=== PATIENT | male | born 1985 | race Caucasian/White ===

== ENCOUNTER 2016-05-06 14:12 | Inpatient (IN) | payer BC, OTHER ==
[~2016-05-06] VITALS: Ht 172.7 cm; Wt 86.2 kg
[2016-05-06] MEDS ORDERED: ONDANSETRON ODT 4 MG TAB.RAPDIS SL PRN (18:00)
[2016-05-06] MEDS ORDERED: LORAZEPAM 2 MG/1 ML VIAL IM PRN (18:00)
[2016-05-06] MEDS ORDERED: BACLOFEN 20 MG TABLET PO PRN (18:00)
[2016-05-06] MEDS ORDERED: MAG HYDROX/AL HYDROX/SIMETH 30 ML LIQUID UDC PO PRN (18:00)
[2016-05-06] MEDS ORDERED: MAGNESIUM HYDROXIDE 30 ML LIQUID UDC PO PRN (18:00)
[2016-05-06] MEDS ORDERED: DIAZEPAM 10 MG TABLET PO PRN ×2 (18:00)
[2016-05-06] MEDS ORDERED: ACETAMINOPHEN 325 MG TABLET PO PRN (18:00)
[2016-05-06] MEDS ORDERED: BUPRENORPHINE HCL 2 MG TAB.SUBL SL PRN (18:00)
[2016-05-06] MEDS ORDERED: PROMETHAZINE HCL 25 MG/1 ML VIAL IM PRN (18:00)
[2016-05-06] MEDS ORDERED: DIAZEPAM 5 MG TABLET PO PRN (18:00)
[2016-05-06] MEDS ORDERED: KETOROLAC TROMETHAMINE 30 MG INJ IM PRN (18:00)
[2016-05-06] MEDS ORDERED: DICYCLOMINE HCL 20 MG TABLET PO PRN (18:00)
[2016-05-06] MEDS ORDERED: IBUPROFEN 600 MG TABLET PO PRN (18:00)
[2016-05-06] MEDS ORDERED: diphenhydrAMINE 50 MG CAPSULE PO PRN (18:00)
[2016-05-06] MEDS ORDERED: LOPERAMIDE HCL 2 MG CAPSULE PO PRN ×2 (18:00)
[2016-05-06 18:10] VITALS: BP 117/75
[2016-05-06 18:31] LABS: *AMPHETAMINE, URINE NEGATIVE (NEGATIVE); *BARBITURATE, URINE NEGATIVE (NEGATIVE); *CANNABINOID, URINE NEGATIVE (NEGATIVE); *COCCAINE, URINE NEGATIVE (NEGATIVE); *OPIATE, URINE POSITIVE (NEGATIVE)
[2016-05-06 18:50] LABS: *PHENCYCLIDINE SCREEN,URINE NEGATIVE (NEGATIVE)
[2016-05-06 20:00] VITALS: BP 131/61
[2016-05-06] MEDS ORDERED: LIDO30CR TP (20:11)
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
[2016-05-06] MEDS: GABAPENTIN 300 MG CAPSULE PO SCH (20:33)
[2016-05-06 20:40] LABS: BASOPHILS % (AUTO) 0.5 % (0.0-2.0); EOSINOPHILS # (AUTO) 0.3 K/uL (0.0-0.7); EOSINOPHILS % (AUTO) 3.7 % (0.0-7.0); HEMATOCRIT 43.8 % (40.0-50.0); HEMOGLOBIN 14.9 g/dL (14.0-18.0); LYMPHOCYTES # (AUTO) 2.5 K/uL (0.8-4.8); LYMPHOCYTES % (AUTO) 32.9 % (20.5-51.5); MEAN CORPUSCULAR HEMOGLOBIN 29.7 uug (27.0-31.0); MEAN CORPUSCULAR HGB CONC 34 g/dL (32.0-37.0); MEAN CORPUSCULAR VOLUME 87.5 fL (82.0-92.0); MONOCYTES # (AUTO) 0.5 K/uL (0.1-1.30); MONOCYTES % (AUTO) 6.2 % (0.0-11.0); NEUTROPHILS # (AUTO) 4.2 K/uL (1.8-8.9); NEUTROPHILS % (AUTO) 56.7 % (38.5-71.5); PLATELET COUNT (AUTO) 171 K/uL (150-450); RED BLOOD CELL COUNT(AUTO) 5.01 MIL/uL (4.70-6.10); RED CELL DISTRIBUTION WIDTH 12.2 % (11.5-14.5); WHITE BLOOD COUNT (AUTO) 7.5 K/uL (4.0-11.2)
[2016-05-06] MEDS ORDERED: DIAZEPAM 10 MG TABLET PO SCH (21:00)
[2016-05-06] MEDS ORDERED: BUPRENORPHINE HCL 2 MG TAB.SUBL SL SCH (21:00)
[2016-05-06 21:01] LABS: ALANINE AMINOTRANSFERASE 30 U/L (16-63); ALBUMIN 3.8 g/dL (3.4-5.0); ALKALINE PHOSPHATASE 64 U/L (50-136); ASPARTATE AMINOTRANSFERASE 16 U/L (15-37); BILIRUBIN,TOTAL 0.2 mg/dL (0.2-1.0); CALCIUM 8.9 mg/dL (8.5-10.1); CARBON DIOXIDE 30 mmol/L (21-32); CHLORIDE 105 mmol/L (98-107); CREATININE 1.1 mg/dL (0.6-1.3); GFR 80 mL/min (>60); GLUCOSE 134 mg/dL (74-106); POTASSIUM 3.7 mmol/L (3.5-5.1); SODIUM SERUM 143 mmol/L (136-145); TOTAL PROTEIN, SERUM 6.7 g/dL (6.4-8.2); UREA NITROGEN, BLOOD 11 mg/dL (7-18)
[2016-05-06 21:02] LABS: ETHANOL < 3 MG/DL (0-0)
[2016-05-06 21:06] LABS: THYROID STIMULATING HORMONE 0.767 mIU/mL (0.358-3.740)
[2016-05-06 21:09] LABS: HIV-1 p24 ANTIGEN NON REACTIVE (NONREACTIVE); HIV-1/2 ANTIBODY NON REACTIVE (NONREACTIVE)
[2016-05-06] MEDS: HYDROXYZINE PAMOATE 25 MG CAPSULE PO PRN (22:55)
--- NOTE | 2016-05-06 22:55 | NUR ---
BENADRYL AND VISTARIL PRN ADMINISTRATION Pt stated " I'm feeling a little anxious and I can't sleep. Can I have something?" Benadryl 50 mg PO PRN and Vistaril 50 mg PO PRN was given. Pt was encouraged to notify staff of any changes in condition or of any concerns. Pt verbalized an understanding. All safety measures in place. Will monitor for effectiveness.
--- NOTE | 2016-05-06 23:50 | NUR ---
BENADRYL AND VISTARIL PRN REASSESSMENT Pt is asleep in bed with no signs of distress/discomfort noted. PRNs effective. All safety measures in place. Will continue to monitor.
[2016-05-07] VITALS: BP 108/63
[2016-05-07] MEDS: CLONIDINE HCL 0.1 MG TABLET PO PRN ×2 (03:05→13:21)
--- NOTE | 2016-05-07 03:08 | NUR ---
CLONIDINE PRN ADMINISTRATION Pt stated " I woke up sweating, and I'm fidgety. Can I have something?" Clonidine 0.1 mg PO PRN was given. (BP: 112/61 HR: 72). Pt was encouraged to notify staff of any changes in condition or of any further concerns. Pt verbalized an understanding. All safety measures in place. Will monitor for effectiveness.
--- NOTE | 2016-05-07 04:00 | NUR ---
CLONIDINE PRN REASSESSMENT Pt is asleep in bed with no signs of distress/discomfort noted. PRN effective. All safety measures in place. Will continue to monitor.
--- NOTE | 2016-05-07 04:00 | NUR ---
COW, CIWA, AND VITALS REFUSED Pt refused to be assessed and have vitals taken at this time. Pt was encouraged x 3 with risks and benefits explained but the pt still declined. All safety measures in place. Will continue to monitor. Addendum: 05/07/16 at 0648 by CHARLY UP LVN Amended: Links added.
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
--- NOTE | 2016-05-07 07:40 | NUR ---
START OF SHIFT Pt is a 30 yr old male, AA&Ox3. Pt was admitted on 05/06/16 for Opiate/Benzo Dependence and is on 5 day Valium/ Subutex taper as ordered. Medication eusebia well. Pt is full code, regular diet and allergies to dairy products. Pt reports PMH of Bipolar, Depression, Anxiety, Chronic Back pain, and Hx of seizures. Pt is currently in bed resting with respirations even and unlabored. No acute distress noted. Skin is intact, warm and dry to touch. No tremor seen or felt. Pt denies any n/v. Safety precautions observed. Bed kept in low position and locked with side rail up x2. Call light is within reach. Will continue to monitor.
[2016-05-07 08:00] VITALS: BP 124/63
[2016-05-07] MEDS: LIDOCAINE 5% PATCH TD SCH (08:57)
[2016-05-07] MEDS: DIAZEPAM 10 MG TABLET PO SCH ×3 (08:58→20:25)
[2016-05-07] MEDS: BUPRENORPHINE HCL 2 MG TAB.SUBL SL SCH ×3 (08:59→20:25)
[2016-05-07] MEDS: GABAPENTIN 300 MG CAPSULE PO SCH ×2 (08:59→14:10)
[2016-05-07] MEDS: MULTIVITAMINS,THERAPEUTIC TABLET PO SCH (08:59)
[2016-05-07] MEDS ORDERED: TUBERCULIN,PURIF.PROT.DERIV. 5 TU/0.1 ML TEST ID ONE (09:00)
[2016-05-07 12:00] VITALS: BP 121/68
--- NOTE | 2016-05-07 13:21 | NUR ---
PRN'S GIVEN Pt c/o hot/cold chills. Facial redness is observed. Pt is noted with teary eyes. Pt is c/o muscle aching and anxiety. Clonidine 0.1mg PO PRN and Motrin 600mg PO PRN was given as ordered. Medication eusebia well. Encouraged increase fluid intake. Will continue to monitor.
[2016-05-07] MEDS: BACLOFEN 20 MG TABLET PO SCH ×2 (14:10→20:23)
--- NOTE | 2016-05-07 14:21 | NUR ---
PRN RE-ASSESSMENT Clonidine 0.1mg PRN and Motrin 600mg PO PRN was mildly effective. Pt received Subutex 4mg SL and Valium 10mg PO as scheduled was given. Medication was eusebia well and effective. Encouraged increase fluid intake. Will continue to monitor.
[2016-05-07 16:00] VITALS: BP 130/61
[2016-05-07] MEDS: MIRALAX 17 GM POWD.PACK PO PRN (18:37)
--- NOTE | 2016-05-07 19:17 | NUR ---
END OF SHIFT Pt is a 30 yr old male, AA&Ox3. Pt was admitted on 05/06/16 for Opiate/Benzo Dependence and is on 5 day Valium/ Subutex taper as ordered. Medication eusebia well. Pt is full code, regular diet and allergies to dairy products. Pt reports PMH of Bipolar, Depression, Anxiety, Chronic Back pain, and Hx of seizures. Pt has been cooperative with plan of care and medication regime. Pt received Clonidine and Motrin PRN was given at 1321 for s/s of w/d. Medication was mildly effective. Pt c/o not having a BM in 3 days. Miralax 17gm PRN was given as ordered at 1837. Endorsed to structural metal fabricator apprentice nurse to continue to monitor. encouraged increase fluid intake. Skin is intact, warm and dry to touch. No tremor seen or felt. Pt denies any n/v at this time. Last COWS score was 8, CIWA score was 6. Safety precautions observed. Bed kept in low position and locked with side rail up x2. Call light is within reach.
[2016-05-07 20:00] VITALS: BP 134/73
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
[2016-05-07] MEDS ORDERED: GABAPENTIN 300 MG CAPSULE PO SCH (21:00)
[2016-05-07] MEDS ORDERED: LIDOCAINE 5% PATCH TD ONE (21:45)
[2016-05-07] MEDS: TRAZODONE 50 MG TABLET PO PRN (22:59)
--- NOTE | 2016-05-07 22:59 | NUR ---
PRN TRAZADONE ADMINISTRATION PATIENT REQUESTS FOR SLEEP AID. PRN TRAZADONE GIVEN. WILL MONITOR FOR EFFECTIVENESS
--- NOTE | 2016-05-08 | NUR ---
PRN TRAZADONE RE-ASSESSMENT/COWS/CIWA/VS PATIENT REQUESTED NOT TO WAKE HIM UP FOR VS. COWS/CIWA UNABLE TO COMPLETE . PATIENT IN BED WITH EYES CLOSED. RESPIRATION EVEN AND UNLABORED. RR 14. SAFETY MEASURES IN PLACE. CALL LIGHT IN REACH. WILL CONTINUE TO MONITOR
--- NOTE | 2016-05-08 04:00 | NUR ---
COWS/CIWA/VS PATIENT REQUESTED NOT TO WAKE HIM UP FOR VS. COWS/CIWA UNABLE TO COMPLETE . PATIENT IN BED WITH EYES CLOSED. RESPIRATION EVEN AND UNLABORED. RR 16. SAFETY MEASURES IN PLACE. CALL LIGHT IN REACH. WILL CONTINUE TO MONITOR
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
--- NOTE | 2016-05-08 07:05 | NUR ---
Start of Shift Notes: Received patient in his room. Alert and oriented x 4. Verbally responsive. Able to make his needs known. Respirations even and unlabored. No SOB noted. Skin warm and dry to touch. Abdomen soft and non-distended. BS (+) in all 4 quadrants. No complains of N/V/D or constipation noted. Bladder non-distended. Voids independently with no complains of dysuria. Ambulatory ad tangela with steady gait. Patient is a 30 year old male admitted for opiate and BZO dependence who was placed on a 5-day Subutex and 5-day Valium taper as ordered. No adverse reactions noted. Has past medical hx of bipolar disorder, depression, anxiety, chronic back pain, induced seizure due to BZO withdrawal. Allergic to dairy product. FULL CODE. Regular diet. On fall and seizure precautions. Educated patient on his current plan of care for the day and his medication regimen. Encouraged oral fluid intake and encouraged group participation to learn new skills to prevent relapse. Will continue to monitor closely.
[2016-05-08 08:00] VITALS: BP 112/61
[2016-05-08] MEDS: LIDOCAINE 5% PATCH TD SCH (08:08)
[2016-05-08] MEDS: MULTIVITAMINS,THERAPEUTIC TABLET PO SCH (08:08)
[2016-05-08] MEDS: DIAZEPAM 5 MG TABLET PO SCH ×4 (08:08→21:01)
[2016-05-08] MEDS: BACLOFEN 20 MG TABLET PO SCH ×3 (08:08→21:00)
[2016-05-08] MEDS: GABAPENTIN 300 MG CAPSULE PO SCH ×3 (08:08→21:01)
[2016-05-08] MEDS ORDERED: BUPRENORPHINE HCL 2 MG TAB.SUBL SL SCH (09:00)
[2016-05-08] MEDS ORDERED: LIDOCAINE/PRILOCAINE 5 GM CREAM.GM. TP PRN (11:00)
[2016-05-08 12:00] VITALS: BP 131/79
[2016-05-08] MEDS: MIRALAX 17 GM POWD.PACK PO PRN (12:53)
--- NOTE | 2016-05-08 12:53 | NUR ---
Miralax 17gm PO given: Patient noted with complain of constipation. Encouraged oral fluid intake and activity with no effect. Medicated patient with Miralax 17 gm PO as ordered. Will monitor for effectiveness.
[2016-05-08 13:25] LABS: HCV AB 0.1 s/co ratio (0.0-0.9); HEPATITIS B CORE AB, IgM Negative (Negative); HEPATITIS B SURFACE AG Negative (Negative)
--- NOTE | 2016-05-08 13:53 | NUR ---
Re-assessment: Per patient, no result noted from Miralax at this time. Will continue to monitor for effectiveness.
[2016-05-08] MEDS: CLONIDINE HCL 0.1 MG TABLET PO SCH ×2 (14:53→21:00)
[2016-05-08] MEDS: BUPRENORPHINE HCL 2 MG TAB.SUBL SL SCH ×2 (14:53→21:01)
[2016-05-08 16:00] VITALS: BP 121/77
--- NOTE | 2016-05-08 16:23 | NUR ---
Subutex 2 mg SL x 1 given: Orders received from MD for x 1 dose of Subutex 2 mg. Will monitor for effectiveness.
[2016-05-08] MEDS ORDERED: BUPRENORPHINE HCL 2 MG TAB.SUBL SL ONE (16:30)
[2016-05-08] MEDS ORDERED: MAGNESIUM CITRATE 296 ML BOTTLE PO ONE (16:30)
--- NOTE | 2016-05-08 16:53 | NUR ---
Re-assessment: COWS 2. PRN Subutex was effective.
--- NOTE | 2016-05-08 18:40 | NUR ---
Mag Citrate given: Patient requested for mag citrate to be given at this time due to no relief noted from Miralax. Mag Citrate was given as ordered. Will monitor for effectiveness.
[2016-05-08] MEDS: PATIENT MAY USE OWN MED- MD OK TOP PRN (18:41)
--- NOTE | 2016-05-08 19:28 | NUR ---
End of Shift Notes: Patient is a 30 year old male admitted for opiate dependence who was placed on a 5-day Valium and 5-day Subutex taper as ordered. No adverse reactions noted. Patient is on his 3rd day of his taper. Has past medical hx of bipolar disorder, depression, anxiety, chronic back pain, withdrawal induced seizure. Allergic to milk and dairy products. FULL CODE. Regualr diet. On fall and seizure precautions. Prior to admission, patient was using Oxycodone 20mg PO, Morphine 45-60 mg PO and Soma. VS monitored q 4 hours. No significant abnormalities noted in the patients VS noted. Withdrawal symptoms were closely monitored. Patient presented with anxiety, agitation, bone/joint aches, chills/hot flashes and mild sweats. Initial COWS 7/CIWA 5. Last COWS 2/CIWA 4. Per patient, PRN Subutex and Valium has been helping him with his withdrawal symptoms. Patient needs redirection and reassurance. At times, appears to be fixated on his taper meds despite education of his medication regimen. Patient demands taper meds to be increased. Reassurance was provided. Miralax 17 gm PO was given at 1253 due to complain of constipation as well as Mag Citrate. No BM noted this shift. Safety measures in place at all times. All needs met and attended. Will continue to monitor closely.
[2016-05-08 20:00] VITALS: BP 127/84
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
--- NOTE | 2016-05-08 22:00 | NUR ---
PRN MAG CITRATE RE-ASSESSMENT PATIENT STATES HE HAD BM, MAG CITRATE HELPFUL AND EFFECTIVE. CONTINUE TO ENCOURAGE FLUIDS
[2016-05-08] MEDS: TRAZODONE 50 MG TABLET PO PRN (22:58)
--- NOTE | 2016-05-08 22:58 | NUR ---
PRN TRAZADONE ADMINISTRATION PATIENT REQUESTS FOR SLEEP AID. PRN TRAZADONE GIVEN. WILL MONITOR FOR EFFECTIVENESS
--- NOTE | 2016-05-08 23:58 | NUR ---
PRN TRAZADONE RE-ASSESSMENT PATIENT IN BE WITH EYES CLOSED. RESPIRATION EVEN AND UNLABORED. NO S/S OF DISTRESS. SAFETY MEASURES IN PLACE. WILL CONTINUE TO MONITOR.
--- NOTE | 2016-05-09 | NUR ---
COWS/CIWA/VS PATIENT REFUSED VS. UNABLE TO COMPLETE COWS/CIWA ASSESSMENT. RESPIRATION EVEN AND UNLABORED. RR 14. NO S/S OF DISTRESS. SAFETY MEASURES IN PLACE. CALL LIGHT IN REACH. WILL CONTINUE TO MONITOR
--- NOTE | 2016-05-09 04:00 | NUR ---
COWS/CIWA/VS PATIENT REFUSED VS. UNABLE TO COMPLETE COWS/CIWA ASSESSMENT. RESPIRATION EVEN AND UNLABORED. RR 16. NO S/S OF DISTRESS. SAFETY MEASURES IN PLACE. CALL LIGHT IN REACH. WILL CONTINUE TO MONITOR
--- NOTE | 2016-05-09 07:10 | NUR ---
Start of shift note SBAR report rcv'd. Pt was admitted for opiate and soma dependence. Pt has a PMH of bipolar, depression, anxiety, chronic back pain, and withdrawal induced seizures. Pt is on a 5 day valium and 5 day subutex taper. Pt is a full code, has NKDA, is allergic to milk, is on a regular diet. Pt is currently resting in bed. Respirations are even and unlabored. Bed is locked in a low position, call light within reach, side rails up x 2. All needs addressed at this time. Will continue to monitor pt.
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
[2016-05-09 08:00] VITALS: BP 118/60
[2016-05-09] MEDS: GABAPENTIN 300 MG CAPSULE PO SCH ×2 (08:31→15:27)
[2016-05-09] MEDS: CLONIDINE HCL 0.1 MG TABLET PO SCH ×3 (08:31→20:50)
[2016-05-09] MEDS: DIAZEPAM 5 MG TABLET PO SCH ×3 (08:31→20:50)
[2016-05-09] MEDS: MULTIVITAMINS,THERAPEUTIC TABLET PO SCH (08:31)
[2016-05-09] MEDS: BACLOFEN 20 MG TABLET PO SCH ×3 (08:31→20:50)
[2016-05-09] MEDS: BUPRENORPHINE HCL 2 MG TAB.SUBL SL SCH ×3 (08:31→20:56)
[2016-05-09] MEDS: PATIENT MAY USE OWN MED- MD OK TOP PRN ×3 (10:47→20:59)
--- NOTE | 2016-05-09 10:47 | NUR ---
PRN administration Pt c/o back pain, administered lidocaine PRN per MD order. Addendum: 05/09/16 at 1535 by ELIU VILLAGRAN RN pt states pain level of 9/10
--- NOTE | 2016-05-09 11:17 | NUR ---
Reassessment Pt states that the lidocaine cream was effective in reducing his pain to a comfortable level.of 06/24.
[2016-05-09] MEDS ORDERED: BUPRENORPHINE HCL 2 MG TAB.SUBL SL ONE (11:30)
[2016-05-09 12:00] VITALS: BP 116/60
[2016-05-09] MEDS ORDERED: DICYCLOMINE HCL 20 MG TABLET PO SCH (15:00)
[2016-05-09] MEDS: DICYCLOMINE HCL 20 MG TABLET PO SCH ×2 (15:27→20:49)
--- NOTE | 2016-05-09 15:32 | NUR ---
PRN administration Pt states that he has pain level of 9/10. Administered lidocaine ointment per MD order. Will continue to monitor pt.
[2016-05-09 16:00] VITALS: BP 136/79
--- NOTE | 2016-05-09 18:51 | NUR ---
End of shift note Pt was admitted for opiate and soma dependence. Pt has a PMH of bipolar, depression, anxiety, chronic back pain, and withdrawal induced seizures. Pt is on a 5 day valium and 5 day subutex taper. Pt is a full code, has NKDA, is allergic to milk, is on a regular diet. Pt had one extra dose of Subutex during the shift d/t his high COWS score and withdrawal. Pt is tolerating the rest of the taper well. Pt recent COWS of 7 and CIWA of 7. Pt had two administrations of his lidocaine ointment for his back pain. Pt states that he is comfortable at this time. Will endorse SBAR to oncoming shift. All needs addressed at this time.
[2016-05-09 20:00] VITALS: BP 124/77
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
--- NOTE | 2016-05-09 20:59 | NUR ---
PRN Administration 2059 Pt reported lower back pain 07/25, requested relief. Lidocaine 5% ointment administered. Safety measures in place, call light within reach, side rails up x2, bed locked and in low position. Will continue to monitor.
[2016-05-09] MEDS ORDERED: GABAPENTIN 300 MG CAPSULE PO SCH (21:00)
--- NOTE | 2016-05-09 21:56 | NUR ---
PRN Reassessment Upon reassessment, pt rated lower back pain 2/10, pain subsiding, medication effective. Needs met. Safety measures in place, call light within reach, side rails up x2, bed locked and in low position. Will continue to monitor.
[2016-05-09] MEDS: HYDROXYZINE PAMOATE 25 MG CAPSULE PO PRN (21:58)
--- NOTE | 2016-05-09 21:58 | NUR ---
PRN Administration Pt reported anxiety and requested relief. Vistaril 50mg PRN administered. Safety measures in place, call light within reach, side rails up x2, bed locked and in low position. Will continue to monitor.
--- NOTE | 2016-05-09 23:00 | NUR ---
PRN Reassessment Upon reassessment, pt is sleeping, no s/s of distress noted, respirations even and unlabored. . Safety measures in place, call light within reach, side rails up x2, bed locked and in low position. Will continue to monitor.
[2016-05-10] VITALS: BP 125/63
--- NOTE | 2016-05-10 | NUR ---
Vital Signs BP 125/63, pulse 76, respirations 16, SpO2 98%, temp 98, no pain rated 0/10 CIWA/COWS deferred d/t pt sleeping, to asses while awake as ordered. Respirations even and unlabored, no s/s of distress noted. Safety measures in place, call light within reach, side rails up x2, bed locked and in low position. Will continue to monitor.
[2016-05-10 04:00] VITALS: BP 128/73
--- NOTE | 2016-05-10 04:00 | NUR ---
Vital Signs BP 128/73, pulse 75, respirations 14, SpO2 98%, temp 98.1, no pain rated 0/10 CIWA/COWS deferred d/t pt sleeping, to asses while awake as ordered. Respirations even and unlabored, no s/s of distress noted. Safety measures in place, call light within reach, side rails up x2, bed locked and in low position. Will continue to monitor.
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
[2016-05-10 08:00] VITALS: BP 118/78
[2016-05-10] MEDS: BACLOFEN 20 MG TABLET PO SCH ×3 (08:22→22:06)
[2016-05-10] MEDS: MULTIVITAMINS,THERAPEUTIC TABLET PO SCH (08:22)
[2016-05-10] MEDS: GABAPENTIN 300 MG CAPSULE PO SCH ×3 (08:22→22:07)
[2016-05-10] MEDS: DICYCLOMINE HCL 20 MG TABLET PO SCH ×3 (08:22→22:06)
[2016-05-10] MEDS: CLONIDINE HCL 0.1 MG TABLET PO SCH ×3 (08:23→22:06)
[2016-05-10] MEDS: PATIENT MAY USE OWN MED- MD OK TOP PRN (08:45)
--- NOTE | 2016-05-10 08:45 | NUR ---
PRN Administration Pt c/o lower back pain 05/25, Lidocaine 5% ointment administered. Safety measures in place, call light within reach, Will continue to monitor.
[2016-05-10] MEDS ORDERED: BUPRENORPHINE HCL 2 MG TAB.SUBL SL SCH (09:00)
[2016-05-10] MEDS ORDERED: DIAZEPAM 5 MG TABLET PO SCH (09:00)
--- NOTE | 2016-05-10 09:45 | NUR ---
REASSESSMENT Upon reassessment, pt reported lower back pain 02/24, pain subsiding, medication effective. Needs met. Will cont to monitor.
[2016-05-10 12:00] VITALS: BP 138/67
[2016-05-10] MEDS ORDERED: MAGNESIUM CITRATE 296 ML BOTTLE PO ONE (13:30)
[2016-05-10] MEDS ORDERED: BISACODYL 10 MG SUPP.RECT RC PRN (13:30)
[2016-05-10] MEDS ORDERED: BISACODYL 5 MG TABLET.DR PO PRN (13:30)
[2016-05-10] MEDS: DIAZEPAM 5 MG TABLET PO SCH ×2 (14:29→22:05)
[2016-05-10] MEDS: DOCUSATE SODIUM 250 MG CAPSULE PO SCH (14:30)
[2016-05-10] MEDS: BUPRENORPHINE HCL 2 MG TAB.SUBL SL SCH ×3 (14:33→22:05)
[2016-05-10 16:00] VITALS: BP 121/78
--- NOTE | 2016-05-10 19:15 | NUR ---
END OF SHIFT NOTE Gave report to night nurse, 30 year old male admitted for opiate and soma dependence. Pt has a PMH of bipolar, depression, anxiety, chronic back pain, and withdrawal induced seizures. Pt is on a 5 day Valium and 5 day Subutex taper. Pt is a full code, has NKDA, is allergic to milk, is on a regular diet. Pt received PRN Lidocaine oint for back pain noted to be effective. Pt recent COWS of 5, and CIWA of 5. Pt's total intake 4132ml voided x5. Pt attended some groups. Pt refused magnesium citrate offered x3 risk and benefits explained, pt refused. MD aware. Safety measures in place, call light within reach. Pt endorsed to night nurse in stable condition.
--- NOTE | 2016-05-10 19:26 | NUR ---
START OF SHIFT NOTE : Pt. is 30 year old male admitted for opiate and soma dependence. Pt has a PMH of bipolar, depression, anxiety, chronic back pain, and withdrawal induced seizures. Pt is on a 5 day Valium and 5 day Subutex taper, started on 05/06/2016. Pt is a full code, has NKDA, is allergic to milk, is on a regular diet. COWS of 5, and CIWA of 5 at 16:00. Safety measures in place, call light within reach. Pt endorsed to night nurse in stable condition.
[2016-05-10 20:00] VITALS: BP 125/70
[2016-05-10] MEDS: NAPROXEN 500 MG TABLET PO SCH (22:06)
--- NOTE | 2016-05-11 04:00 | NUR ---
VS Deferred Assessment deferred d/t pt sleeping, no s/s of distress noted, RR=16 , respirations even and unlabored. Safety measures in place, call light within reach, side rails up x2, bed locked and in low position. Will continue to monitor.
--- NOTE | 2016-05-11 04:45 | NUR ---
PRN MOTRIN Pt. complains of LB pain, 07/25. PRN MOTRIN given as ordered. Safety measures in place : bed on lowest position with side rails x2 up for safety, call light within reach. Will continue to monitor closely and offer help.
--- NOTE | 2016-05-11 05:26 | NUR ---
REASSESSMENT DIONNA Roy. complains is able to rest quietly in the room He states decreasing of pain level to 3-4/10. Safety measures in place : bed on lowest position with side rails x2 up for safety, call light within reach. Will continue to monitor closely and offer help.
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
--- NOTE | 2016-05-11 07:00 | NUR ---
END OF SHIFT NOTE : Pt. is 30 year old male admitted for opiate and soma dependence. Pt has a PMH of bipolar, depression, anxiety, chronic back pain, and withdrawal induced seizures. Pt is on a 5 day Valium and 5 day Subutex taper, started on 05/06/2016. Pt is a full code, has NKDA, is allergic to milk, is on a regular diet. COWS of 3, and CIWA of 3 at 04:00. Pt remains compliant with the treatment plan. Pt denies nausea, vomiting and diarrhea. No PRNs were given during my shift. V/S remain WNL. RR=16, even and unlabored, lungs clear upon auscultation, abdomen soft and non- distended. Pt denies nausea, vomiting and diarrhea. DVAHRP=249 ml, voided x 4, slept 6 hours[address] measures in place : bed on lowest position with side rails x2 up for safety, call light within reach. Will continue to monitor closely and offer help.
[2016-05-11 08:00] VITALS: BP 123/61
[2016-05-11] MEDS ORDERED: BUPRENORPHINE HCL 2 MG TAB.SUBL SL SCH (09:00)
[2016-05-11] MEDS: BACLOFEN 20 MG TABLET PO SCH ×3 (09:07→21:53)
[2016-05-11] MEDS: DIAZEPAM 2 MG TABLET PO SCH ×3 (09:07→21:52)
[2016-05-11] MEDS: MULTIVITAMINS,THERAPEUTIC TABLET PO SCH (09:07)
[2016-05-11] MEDS: GABAPENTIN 300 MG CAPSULE PO SCH ×2 (09:07→14:22)
[2016-05-11] MEDS: CLONIDINE HCL 0.1 MG TABLET PO SCH ×3 (09:08→21:54)
[2016-05-11] MEDS: DOCUSATE SODIUM 250 MG CAPSULE PO SCH (09:08)
[2016-05-11] MEDS: NAPROXEN 500 MG TABLET PO SCH ×2 (09:08→21:54)
[2016-05-11] MEDS: DICYCLOMINE HCL 20 MG TABLET PO SCH ×3 (09:08→21:53)
[2016-05-11] MEDS: FAMOTIDINE 20 MG TABLET PO SCH (09:08)
[2016-05-11 12:00] VITALS: BP 130/70
[2016-05-11] MEDS: BUPRENORPHINE HCL 2 MG TAB.SUBL SL SCH ×2 (14:22→21:51)
[2016-05-11] MEDS ORDERED: MAGNESIUM CITRATE 296 ML BOTTLE PO ONE (15:00)
[2016-05-11] MEDS: PATIENT MAY USE OWN MED- MD OK TOP PRN (15:40)
--- NOTE | 2016-05-11 15:40 | NUR ---
PRN Medication Administration Pt c/o lower back pain; topical Lidocaine ointment applied as ordered. Will reassess in 1H.
[2016-05-11 16:00] VITALS: BP 126/69
[2016-05-11] MEDS: BENZOCAINE/MENTH/CETYLPYRD LOZENGE MM PRN ×2 (18:48→23:29)
--- NOTE | 2016-05-11 18:50 | NUR ---
New orders & PRN Medication Administration Pt c/o throat discomfort after smoking; PRN Cepacol given as ordered. Will reassess in 30 mins.
--- NOTE | 2016-05-11 19:10 | NUR ---
Reassessment Pt denies throat discomfort; Cepacol is effective. Will cont. to monitor the pt until the end of my shift.
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
--- NOTE | 2016-05-11 19:30 | NUR ---
START OF SHIFT NOTE : Pt. is 30 year old male admitted for opiate and soma dependence. Pt has a PMH of bipolar, depression, anxiety, chronic back pain, and withdrawal induced seizures. Pt is placed on a 2 day mod.Valium and 3 days mod. Subutex taper, started on 05/11/2016. Pt is a full code, has NKDA, is allergic to milk, is on a regular diet. COWS of 4, and CIWA of 5 at 16:00. Safety measures in place, call light within reach. Pt endorsed to night nurse in stable condition.
[2016-05-11 20:00] VITALS: BP 132/73
[2016-05-11] MEDS ORDERED: GABAPENTIN 300 MG CAPSULE PO SCH (21:00)
[2016-05-11] MEDS: GABAPENTIN 400 MG CAPSULE PO SCH (21:54)
--- NOTE | 2016-05-12 02:00 | NUR ---
PRN Cepacol and Albuterol Pt. complains of soar throat and mild SOB. PRN Cepacol and Albuterol given as ordered . Safety measures in place : bed on lowest position with side rails x2 up for safety, call light within reach. Will continue to monitor closely and offer help.
--- NOTE | 2016-05-12 02:55 | NUR ---
REASSESSMENT Cepacol and Albuterol Pt. is sleeping , RR=16, even and unlabored . Safety measures in place : bed on lowest position with side rails x2 up for safety, call light within reach. Will continue to monitor closely and offer help.
--- NOTE | 2016-05-12 06:52 | NUR ---
END OF SHIFT NOTE : Pt. is 30 year old male admitted for opiate and soma dependence. Pt has a PMH of bipolar, depression, anxiety, chronic back pain, and withdrawal induced seizures. Pt completed a 5 day Valium and 5 day Subutex taper, new modified taper ordered : Subutex 05/11/2016-05/13/2016, Valium 05/11/2016-05/12/2016. Pt is a full code, has NKDA, is allergic to milk, is on a regular diet. COWS of 3, and CIWA of 3 at 04:00. Pt remains compliant with the treatment plan. Pt denies nausea, vomiting and diarrhea. PRNs Cepacol and Albuterol inhaler were given during my shift. V/S remain WNL. RR=16, even and unlabored, lungs clear upon auscultation, abdomen soft and non- distended. Pt denies nausea, vomiting and diarrhea. CAYEDP=471 ml, voided x 1, slept 5 hours.Safety measures in place : bed on lowest position with side rails x2 up for safety, call light within reach. Will continue to monitor closely and offer help.
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
[2016-05-12 08:00] VITALS: BP 125/77
[2016-05-12] MEDS: BUPRENORPHINE HCL 2 MG TAB.SUBL SL SCH ×3 (09:25→21:27)
[2016-05-12] MEDS: CLONIDINE HCL 0.1 MG TABLET PO SCH ×3 (09:26→21:26)
[2016-05-12] MEDS: DIAZEPAM 2 MG TABLET PO SCH ×2 (09:26→21:26)
[2016-05-12] MEDS: DOCUSATE SODIUM 250 MG CAPSULE PO SCH (09:26)
[2016-05-12] MEDS: BACLOFEN 20 MG TABLET PO SCH ×3 (09:26→21:27)
[2016-05-12] MEDS: FAMOTIDINE 20 MG TABLET PO SCH (09:26)
[2016-05-12] MEDS: NAPROXEN 500 MG TABLET PO SCH ×2 (09:26→21:26)
[2016-05-12] MEDS: MULTIVITAMINS,THERAPEUTIC TABLET PO SCH (09:26)
[2016-05-12] MEDS: DICYCLOMINE HCL 20 MG TABLET PO SCH ×3 (09:26→21:26)
[2016-05-12] MEDS: GABAPENTIN 300 MG CAPSULE PO SCH ×2 (09:27→15:39)
[2016-05-12] MEDS: BENZOCAINE/MENTH/CETYLPYRD LOZENGE MM PRN ×4 (09:34→21:27)
--- NOTE | 2016-05-12 09:35 | NUR ---
PRN Medication Administration Pt c/o sore and dry throat after smoking this morning; PRN Cepacol throat lozenger given as ordered. Will reassess in 30 minutes.
--- NOTE | 2016-05-12 10:10 | NUR ---
Reassessment Pt denies throat discomfort; Cepacol is effective. Will cont. to monitor the pt.
[2016-05-12 12:00] VITALS: BP 124/72
--- NOTE | 2016-05-12 12:46 | NUR ---
PRN Medication Administration Pt c/o sore throat again after smoking this morning; PRN Cepacol 1 throat lozenge Q2H given as ordered. Will reassess in 30 minutes.
[2016-05-12] MEDS: HYDROXYZINE PAMOATE 25 MG CAPSULE PO PRN (13:26)
--- NOTE | 2016-05-12 13:30 | NUR ---
Reassessment and PRN Medication Administration Pt is very anxious in room and unable to sit still with HR 98-101 with pacing and restless; PRN Vistaril 50mg given as ordered and pt states the throat discomfort is relieved so Cepacol was effective. Will reassess in 1 H.
[2016-05-12 16:00] VITALS: BP 139/74
[2016-05-12] MEDS: PATIENT MAY USE OWN MED- MD OK TOP PRN ×2 (17:29→23:07)
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
--- NOTE | 2016-05-12 19:49 | NUR ---
End of Shift Report from night nurse: Pt is 66 y.o male her for Opiate dependence r/t Heroin 2-4 bags/d IV, Dilaudid 60-70mg/d, Methadone 160mg/d, Benzo r/t Xanax 4mg/d, Cocaine 0.25-1g/d IV; Modified Ativan and Subutex tapers ordered. HHx: Smoker, DM with accuecheck AC/HS and stable last night, HTN, ADHD and Bipolar. Pt is a full code, allergic to Tylenol, caffeine, butalbital, Tramadol, ADA diet, with sitter 1:1 r/t AMS & unsteady gait with new order for PT Eval today with recommendations of ambulated with supervision as needed. Skin is not intact r/t Cellulitis on bilateral hands with #22g SL on Right hand 1/2 NS with Na HCO2 running at 125cc/H, Vanco IVPB given during my shift with trough 18 today. 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 Reis is aware. V/S stable with effective cardiac regimen. last BG 191 w/ 3 units given AC. Recommend to night nurse how pt is uncooperative with care and hydrations since he smokes and refused to get hydration with IVF as ordered and to set limits with the pt's smoking habits; application integration engineer and Dr. Reis are aware. Pt was excused from group r/t IVF ordered. Last CIWA 2 COWS 2. Addendum: 05/12/16 at 1950 by JOSE BECKHAM RN Error Wrong Patient
[2016-05-12 20:00] VITALS: BP 122/65
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
[2016-05-12] MEDS: GABAPENTIN 400 MG CAPSULE PO SCH (21:27)
--- NOTE | 2016-05-12 21:27 | NUR ---
PRN Administration Pt reported sore throat, requested relief. Cepacol 1 edward administered. Safety measures in place, Will continue to monitor.
--- NOTE | 2016-05-12 22:00 | NUR ---
PRN Reassessment Pt reports relief of sore throat, Cepacol effective. Needs met, safety measures in place, Will continue to monitor.
--- NOTE | 2016-05-12 23:07 | NUR ---
PRN Administration Pt reports pain in lower back, rated 5/10, requested relief. Lidocaine 5% ointment PRN administered as ordered. Safety measures in place, call light within reach, side rails up x2, bed locked and in low position. Will continue to monitor.
--- NOTE | 2016-05-12 23:55 | NUR ---
PRN Reassessment Upon reassessment, pt states subsiding pain in lower back, rated 2-3/10. Needs met, safety measures in place, call light within reach, side rails up x2, bed locked and in low poistion. Will continue to monitor.
[2016-05-13] VITALS: BP 117/62
--- NOTE | 2016-05-13 | NUR ---
Vital Signs BP 117/62, pulse 79, respirations 16, SpO2 97%, temp 98.1, no pain rated 0/10 CIWA/COWS deferred d/t pt sleeping, to asses while awake as ordered. Respirations even and unlabored, no s/s of distress noted. Safety measures in place, call light within reach, side rails up x2, bed locked and in low position. Will continue to monitor.
[2016-05-13] MEDS: HYDROXYZINE PAMOATE 25 MG CAPSULE PO PRN (02:10)
--- NOTE | 2016-05-13 02:10 | NUR ---
PRN Administration Upon awakening pt reported feeling very anxious. Vistaril 50mg PRN administered. Safety measures in place, call light within reach, side rails up x2, bed locked and in low position. Will continue to monitor.
--- NOTE | 2016-05-13 03:10 | NUR ---
PRN Reassessment Pt is sleeping, no s/s of distress noted, respirations even and unlabored. Safety measures in place, call light within reach, side rails up x2, bed locked and in low position. Will continue to monitor.
--- NOTE | 2016-05-13 04:00 | NUR ---
Pt refused to be woken up for 0400 VS CIWA/COWS deferred d/t pt sleeping, to asses while awake as ordered. Respirations even and unlabored, no s/s of distress noted. Safety measures in place, call light within reach, side rails up x2, bed locked and in low position. Will continue to monitor.
[2016-05-13] MEDS: BENZOCAINE/MENTH/CETYLPYRD LOZENGE MM PRN ×3 (05:08→22:00)
--- NOTE | 2016-05-13 05:08 | NUR ---
Cepacol 1 edward administered d/t reports of sore throat, needs met, safety measures in place, Will continue to monitor.
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
[2016-05-13 08:00] VITALS: BP 104/68
--- NOTE | 2016-05-13 08:49 | NUR ---
PRN MEDICATION Pt c/o soar throat rating it 4/10 requested something for relief, non-pharmacological techniques interventions provided x3 and were not effective. PRN Cepacol administered PO, educated pt about s/e of medication and when to contact nurse. all needs met, all safety measures in place, will continue to monitor.
[2016-05-13] MEDS: FAMOTIDINE 20 MG TABLET PO SCH (08:50)
[2016-05-13] MEDS: DICYCLOMINE HCL 20 MG TABLET PO SCH ×3 (08:50→20:31)
[2016-05-13] MEDS: NAPROXEN 500 MG TABLET PO SCH ×2 (08:50→20:31)
[2016-05-13] MEDS: DOCUSATE SODIUM 250 MG CAPSULE PO SCH (08:50)
[2016-05-13] MEDS: BACLOFEN 20 MG TABLET PO SCH ×3 (08:50→20:38)
[2016-05-13] MEDS: MULTIVITAMINS,THERAPEUTIC TABLET PO SCH (08:50)
[2016-05-13] MEDS: GABAPENTIN 300 MG CAPSULE PO SCH (08:50)
[2016-05-13] MEDS: CLONIDINE HCL 0.1 MG TABLET PO SCH ×3 (08:51→20:31)
[2016-05-13] MEDS ORDERED: BUPRENORPHINE HCL 2 MG TAB.SUBL SL SCH ×2 (09:00→21:00)
--- NOTE | 2016-05-13 09:49 | NUR ---
PRN REASSESSMENT Medication effective pt reported a decrease in pain to 1/10. all needs met, all safety measures in place will continue to monitor.
[2016-05-13 12:00] VITALS: BP 126/66
[2016-05-13] MEDS: DIAZEPAM 2 MG TABLET PO SCH ×2 (13:34→20:31)
[2016-05-13] MEDS: GABAPENTIN 400 MG CAPSULE PO SCH ×2 (15:05→20:31)
[2016-05-13 16:00] VITALS: BP 128/87
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
[2016-05-13 20:00] VITALS: BP 140/63
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
[2016-05-13] MEDS: DIVALPROEX ER 500 MG TAB.SR.24H PO SCH (20:38)
--- NOTE | 2016-05-13 22:00 | NUR ---
PRN Administration Pt reported sore throat, requested relief. Cepacol 1 edward administered. Miralax 17gm administered for reports of constipation. Safety measures in place, Will continue to monitor.
[2016-05-13] MEDS: MIRALAX 17 GM POWD.PACK PO PRN (22:02)
--- NOTE | 2016-05-13 23:00 | NUR ---
PRN Reassessment Pt stated Cepacol effective. No reports of bowel movement as of yet. needs met, safety measure in place, Will continue to monitor.
[2016-05-13] MEDS: PATIENT MAY USE OWN MED- MD OK TOP PRN (23:34)
--- NOTE | 2016-05-13 23:34 | NUR ---
PRN Administration Pt reports pain in lower back, rated 6/10, requested relief. Lidocaine 5% ointment PRN administered as ordered. Safety measures in place, call light within reach, side rails up x2, bed locked and in low position. Will continue to monitor.
--- NOTE | 2016-05-13 23:57 | NUR ---
PRN Reassessment Pt states lower back pain is subsiding, rated 2-3/10, needs met, safety measures in place, will continue to monitor.
--- NOTE | 2016-05-14 | NUR ---
Pt refused to be woken up for 0000 VS CIWA/COWS deferred d/t pt sleeping, to asses while awake as ordered. Respirations even and unlabored, no s/s of distress noted. Safety measures in place, call light within reach, side rails up x2, bed locked and in low position. Will continue to monitor.
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
--- NOTE | 2016-05-14 07:30 | NUR ---
START OF SHIFT Received report from maintenance mechanic 2nd shift nurse. 30 year old male patient admitted on 05/06/16 for Oxycodone, Morphine and Soma dependence. Pt has medical hx of bipolar, depression, anxiety, chronic back pain, withdrawal induced seizures 7-8 years ago. Pt is allergic to milk, full code, regular diet. Pt has completed 5 day Valium and 5 day Subutex taper. Pt remains seizure free throughout hospitalization. Skin remains warm, dry and intact. Pt slept for 5 hours. Most recent CIWA is 2, COWS 3. V/S remain WNL. Pt had bladder incontinence at night. PRN Miralaax administered and effective. All needs met at this time. Safety precautions are in place, will continue to monitor.
[2016-05-14] MEDS: NAPROXEN 500 MG TABLET PO SCH ×3 (09:00→21:18)
[2016-05-14] MEDS: GABAPENTIN 400 MG CAPSULE PO SCH ×3 (09:03→21:18)
[2016-05-14] MEDS: CLONIDINE HCL 0.1 MG TABLET PO SCH ×3 (09:03→21:18)
[2016-05-14] MEDS: BACLOFEN 20 MG TABLET PO SCH ×3 (09:03→21:18)
[2016-05-14] MEDS: MULTIVITAMINS,THERAPEUTIC TABLET PO SCH (09:03)
[2016-05-14] MEDS: DOCUSATE SODIUM 250 MG CAPSULE PO SCH (09:03)
[2016-05-14] MEDS: FAMOTIDINE 20 MG TABLET PO SCH (09:03)
[2016-05-14] MEDS: DICYCLOMINE HCL 20 MG TABLET PO SCH ×3 (09:03→21:18)
[2016-05-14] MEDS: DIVALPROEX ER 500 MG TAB.SR.24H PO SCH (09:06)
[2016-05-14] MEDS: BENZOCAINE/MENTH/CETYLPYRD LOZENGE MM PRN ×3 (09:10→22:25)
[2016-05-14 09:16] VITALS: BP 121/69
[2016-05-14] MEDS ORDERED: KETOROLAC TROMETHAMINE 30 MG INJ IM PRN (10:30)
[2016-05-14 13:05] VITALS: BP 142/69
[2016-05-14] MEDS: PATIENT MAY USE OWN MED- MD OK TOP PRN (13:47)
--- NOTE | 2016-05-14 13:54 | NUR ---
PRN LIDOCAINE CREAM Pt reports 7/10 back pain, PRN lidocaine cream applied to back as ordered. Will reassess.
[2016-05-14] MEDS ORDERED: Famotidine PO (14:00)
[2016-05-14] MEDS ORDERED: Gabapentin PO (14:00)
[2016-05-14] MEDS ORDERED: CLON0.1T14 PO (14:00)
[2016-05-14] MEDS ORDERED: DICY20TA28 PO (14:00)
[2016-05-14] MEDS ORDERED: Baclofen PO (14:00)
[2016-05-14] MEDS ORDERED: DIVA500T4 PO (14:00)
[2016-05-14] MEDS ORDERED: HYDR-3895 PO (14:00)
[2016-05-14] MEDS ORDERED: Naproxen PO (14:00)
[2016-05-14] MEDS ORDERED: TRAZ-144 PO (14:00)
--- NOTE | 2016-05-14 15:45 | NUR ---
REASSESSMENT Pt states pain improved and reports pain is now 4/10. Pt was offered a Toradol injection to help with pain but refused. Nonpharmacological methods implemented.
[2016-05-14 17:44] VITALS: BP 111/62
--- NOTE | 2016-05-14 19:26 | NUR ---
END OF SHIFT Endorsed to warehouse supervisor 3rd shift nurse. 30 year old male patient admitted on 05/06/16 for Oxycodone, Morphine and Soma dependence. Pt has medical hx of bipolar, depression, anxiety, chronic back pain, withdrawal induced seizures 7-8 years ago. Pt is allergic to milk, full code, regular diet. Pt has completed 5 day Valium and 5 day Subutex taper, and is medically cleared for discharge. Pt remains seizure free throughout hospitalization. Skin remains warm, dry and intact. Pt slept for 5 hours. Most recent CIWA is 2, COWS 3. V/S remain WNL. PRN Lidocaine cream applied to back. PRN Cepacol administered for sore throat/dry mouth and effective. Urine needed for d/c, pt is aware. All needs met at this time. Safety precautions are in place, warehouse supervisor 3rd shift nurse will continue to monitor.
--- NOTE | 2016-05-14 19:30 | NUR ---
START OF SHIFT NOTE: Patient is a 30 y/o male admitted on 05/06/16 for Opiates & Soma use. Patient is on a regular diet with allergies to milk. Full Codes status noted. Patient with past medical histroy of Bipolar d/o, Depression, Anxiety, Chronic back pain & Seizure d/t benzo withdrawal. Seizure and Fall precaution noted. Skin intact. Patient completed his Valium & Subutex taper and he is scheduled to be discharge tomorrow. Urine drug screen to be collected. Last COWS 3 CIWA 2 noted. Patient was given PRN Cepacol x2 for sorethroat during day shift. Patient is alert & oriented x4. No shortness of breath noted. Respiration even & unlabored. Abdomen soft & non-distended. Bowel sounds active in all four quadrants. No nausea/vomiting noted. Patient complains of 8/10 lower back pain. No bilateral hand tremors noted. No hallucinations. Patient denies SI/HI. Safety precautions are in place. Bed locked in lowest position. Both side rails up. Call light within pt's reach. Will continue to monitor patient.
[2016-05-14 20:00] VITALS: BP 122/68
[2016-05-14 20:28] LABS: *AMPHETAMINE, URINE NEGATIVE (NEGATIVE); *BARBITURATE, URINE NEGATIVE (NEGATIVE); *CANNABINOID, URINE NEGATIVE (NEGATIVE); *COCCAINE, URINE NEGATIVE (NEGATIVE); *OPIATE, URINE NEGATIVE (NEGATIVE); *PHENCYCLIDINE SCREEN,URINE NEGATIVE (NEGATIVE)
[2016-05-14] MEDS: TRAZODONE 50 MG TABLET PO PRN (22:25)
[2016-05-14] MEDS: PATIENT MAY USE OWN MED- MD OK INH PRN (22:26)
--- NOTE | 2016-05-14 22:26 | NUR ---
PRN given Patient complains of sore throat, insomnia & shortness of breath and requesting for relief. PRN Cepacol, Trazodone & Albuterol inhaler given as ordered. Safety precautions are in place. Will continue to monitor patient.
--- NOTE | 2016-05-14 23:26 | NUR ---
PRN Reassessment Patient stated that Cepacol was effective. Patient lying in bed with no shortness of breath noted. Respiration even & unlabored. Safety precautions are in place. Will continue to monitor patient.
--- NOTE | 2016-05-15 | NUR ---
Vitals/Cows/Ciwa deferred Patient refused vitals at this time. Patient asleep at this time. No shortness of breath noted. Respiration even & unlabored. Safety precautions are in place. Will continue to monitor.
--- NOTE | 2016-05-15 07:15 | NUR ---
END OF SHIFT NOTE: Patient is a 30 y/o male admitted on 05/06/16 for Opiates & Soma use. Patient is on a regular diet with allergies to milk. Full Codes status noted. Patient with past medical histroy of Bipolar d/o, Depression, Anxiety, Chronic back pain & Seizure d/t benzo withdrawal. Seizure and Fall precaution noted. Skin intact. Patient completed his Valium & Subutex taper and he is scheduled to be discharge tomorrow. Urine drug screen collected and resulted. Patient remained stable and vitals remained WNL. Patient remained compliant with therapeutic plan. last COWS is 3 CIWA 2. Pt was given PRN Cepacol, Albuterol and Trazodone and were effective. Pt slept for a total of 6 hours. Pt consumed 1478ml of fluids. Voided 3x. with no bowel movement. Patient still asleep at this time. No shortness of breath noted. Respiration even & unlabored. All needs attended & met. Safety precautions are in place. Will endorse pt to day shift nurse.
--- NOTE | 2016-05-15 07:42 | NUR ---
START OF SHIFT Received report from double spindle shaper operator nurse. 30 year old male patient admitted on 05/06/16 for Oxycodone, Morphine and Soma dependence. Pt has medical hx of bipolar, depression, anxiety, chronic back pain, withdrawal induced seizures 7-8 years ago. Pt is allergic to milk, pt is full code, regular diet. Pt has completed 5 day Valium and 5 day Subutex taper, and is medically cleared for discharge. Pt remains seizure free throughout hospitalization. Skin remains warm, dry and intact. Pt slept for 6 hours. Most recent CIWA is 2, COWS 3. V/S remain WNL. PRN Cepacol administered for sore throat/dry mouth and effective, PRN Albuerol and Trazodone administered and effective. Pt is aware of discharge. All needs met at this time. Safety precautions are in place, will continue to monitor.
[2016-05-15 08:00] VITALS: BP 122/68
[2016-05-15] MEDS ORDERED: MAGNESIUM CITRATE 296 ML BOTTLE PO ONE (08:30)
[2016-05-15] MEDS: DICYCLOMINE HCL 20 MG TABLET PO SCH (08:35)
[2016-05-15] MEDS: GABAPENTIN 400 MG CAPSULE PO SCH (08:35)
[2016-05-15] MEDS: NAPROXEN 500 MG TABLET PO SCH (08:36)
[2016-05-15] MEDS: FAMOTIDINE 20 MG TABLET PO SCH (08:36)
[2016-05-15] MEDS: BACLOFEN 20 MG TABLET PO SCH (08:36)
[2016-05-15] MEDS: PATIENT MAY USE OWN MED- MD OK TOP PRN (08:36)
[2016-05-15] MEDS: DOCUSATE SODIUM 250 MG CAPSULE PO SCH (08:36)
[2016-05-15] MEDS: MULTIVITAMINS,THERAPEUTIC TABLET PO SCH (08:36)
--- NOTE | 2016-05-15 08:36 | NUR ---
PRN INHALER PRN Inhaler administered and effective. Pt is not SOB at this time. Will continue to monitor.
[2016-05-15] MEDS: CLONIDINE HCL 0.1 MG TABLET PO SCH (09:11)
[2016-05-15] MEDS: PATIENT MAY USE OWN MED- MD OK INH PRN (09:12)
[2016-05-15 09:37] VITALS: BP 131/65
--- NOTE | 2016-05-15 10:02 | NUR ---
D/C NOTE Pt is A/O x4. V/S remain WNL. Pt does not present with acute s/s of withdrawal. All pt belongings including home meds and prescriptions are in belonging bag. Pt denies SI/HI and hallucinations. Pt ambulates with steady gait. Refuses Flu/Pna vaccination. Pt education provided on risks of Hep C and smoking cessation. Pt is being accompanied with TELEPHONE OPERATOR to be transported to sober living. Pt is stable.
[2016-05-17 11:11] LABS: *BENZODIAZEPINES Positive (.); *CODEINE Negative (Cutoff=300); *HYDROMORPHONE Negative (Cutoff=300); *NORDIAZEPAM Negative (Cutoff=300); *OPIATES Positive ng/mL (Cutoff=300); *OXAZEPAM Negative (Cutoff=300)
== END 2016-05-15 10:00 | disposition home or self-care (01) | DRG 895 ==
LOC: SRC 16:40
PROVIDERS: ADMIT Internal Medicine; ATTEND Internal Medicine
PROC: HZ2ZZZZ Detoxification Services for Substance Abuse Treatment (ICD-10-PCS; principal; 2016-05-06)
PROC: HZ41ZZZ Group Counseling for Substance Abuse Treatment, Behavioral (ICD-10-PCS; 2016-05-07)
PROC: HZ31ZZZ Individual Counseling for Substance Abuse Treatment, Behavioral (ICD-10-PCS; 2016-05-07)
DX: F11.23 Opioid dependence with withdrawal (principal); F13.230 Sedative, hypnotic or anxiolytic dependence with withdrawal, uncomplicated; Z81.1 Family history of alcohol abuse and dependence; Z81.3 Family history of other psychoactive substance abuse and dependence; Z82.49 Family history of ischemic heart disease and other diseases of the circulatory system; F17.210 Nicotine dependence, cigarettes, uncomplicated; F15.21 Other stimulant dependence, in remission; F41.0 Panic disorder [episodic paroxysmal anxiety]; G47.00 Insomnia, unspecified; R73.9 Hyperglycemia, unspecified; K59.03 Drug induced constipation; G89.29 Other chronic pain; F14.90 Cocaine use, unspecified, uncomplicated; F16.21 Hallucinogen dependence, in remission; M54.5 Low back pain
CPT/HCPCS: 36415; 70030-TC; 80307; 80346; 80361; 83735; 84443; 85025; 86580; 86592; 86705; 86803; 87340; 87806; A4663; G6040-TC; Q0163